=== PATIENT | female | born 1990 | race Caucasian/White ===

== ENCOUNTER → 2017-03-01 | Outpatient (CLI) | payer OTHER ==
[2017-03-01 16:23] LABS: URINE APPEARANCE CLEAR (CLEAR); URINE BILIRUBIN NEG (NEG); URINE COLOR YELLOW; URINE NITRITE NEG (NEG); URINE PH 6.5 (4.5-7.5); URINE SPECIFIC GRAVITY 1.009 (1.000-1.030); UROBILINOGEN NEG (NEG)
[2017-03-01 16:50] LABS: MANUAL MICROSCOPIC REQUIRED? NO; REVIEW REQ? NO
== END | disposition home or self-care (01) ==
LOC: C.LABSPEC 15:58
PROVIDERS: ATTEND Obstetrics & Gynecology
DX: Z34.01 Encounter for supervision of normal first pregnancy, first trimester (principal); Z3A.00 Weeks of gestation of pregnancy not specified

== ENCOUNTER → 2017-03-04 | Outpatient (CLI) | payer OTHER | END | disposition home or self-care (01) | LOC: C.PAPS 09:01 | PROVIDERS: ATTEND Obstetrics & Gynecology | DX: Z34.01 Encounter for supervision of normal first pregnancy, first trimester (principal); R87.610 Atypical squamous cells of undetermined significance on cytologic smear of cervix (ASC-US) ==

== ENCOUNTER → 2017-03-04 | Outpatient (CLI) | payer OTHER ==
[2017-03-04 16:44] LABS: BASO % 0.4 %; BASO ABS # 0.03 K/uL (0-0.2); COMPLETE YES; EOS % 0.8 %; HEMATOCRIT 36.2 % (37-47); IG% 0.4 %; LYMPH ABS # 2.21 K/uL (1.2-3.4); MEAN CELL VOLUME 89.8 fL (80-100); MEAN CORPUSCULAR HEMOGLOBIN 31.8 pg (25-34); MEAN CORPUSCULAR HGB CONC 35.4 g/dl (32-36); MEAN PLATELET VOLUME 9.9 fL (7.4-10.4); MONO % 7.3 %; NEUT % 65.1 %; PLATELET COUNT 267 K/uL (130-400); RED BLOOD COUNT 4.03 M/uL (4.2-5.4); WHITE BLOOD COUNT 8.49 K/uL (4.8-10.8)
[2017-03-09 00:44] LABS: CHLAMYDIA TRACH RNA*** NOT DETECTED (NOT DETECTED); GC (NEIS GONORRHOEAE)RNA** NOT DETECTED (NOT DETECTED)
== END | disposition home or self-care (01) ==
LOC: C.LAB1850 15:55
PROVIDERS: ATTEND Obstetrics & Gynecology
DX: Z34.01 Encounter for supervision of normal first pregnancy, first trimester (principal)

== ENCOUNTER → 2017-04-30 | Outpatient (CLI) | payer OTHER ==
[2017-04-30 21:31] LABS: GTGD 50 Grams
== END | disposition home or self-care (01) ==
LOC: C.LAB1850 15:43
PROVIDERS: ATTEND Obstetrics & Gynecology
DX: Z34.02 Encounter for supervision of normal first pregnancy, second trimester (principal); Z3A.00 Weeks of gestation of pregnancy not specified

== ENCOUNTER → 2017-07-23 | Outpatient (CLI) | payer OTHER ==
[2017-07-23 16:33] LABS: HEMATOCRIT 33.8 % (37-47); HEMOGLOBIN 11.7 g/dL (12.0-16.0)
== END | disposition home or self-care (01) ==
LOC: C.LAB1850 15:43
PROVIDERS: ATTEND Obstetrics & Gynecology
DX: Z34.03 Encounter for supervision of normal first pregnancy, third trimester (principal)

== ENCOUNTER 2017-09-12 18:14 | Inpatient (IN) | payer OTHER ==
[~2017-09-12] VITALS: Ht 162.6 cm; Wt 68.6 kg
[2017-09-12] MEDS ORDERED: LACTATED RINGER'S 1000ML 1,000 ML IV PRN (18:46)
[2017-09-12] MEDS ORDERED: PENICILLIN G POTASSIUM IV 3 MU in DEXTROSE 5% 100ML 100 ML IV PRN (19:00)
[2017-09-12] MEDS: LACTATED RINGER'S 1000ML 1,000 ML IV SCH ×2 (19:27→23:04)
[2017-09-12] MEDS ORDERED: PENICILLIN G POTASSIUM IV 6 MU in DEXTROSE 5% 250ML 250 ML IV SCH (19:30)
[2017-09-12 19:36] LABS: HEMATOCRIT 35.3 % (37-47); HEMOGLOBIN 12.5 g/dL (12.0-16.0); MEAN CORPUSCULAR HEMOGLOBIN 31.2 pg (25-34); MEAN CORPUSCULAR HGB CONC 35.4 g/dl (32-36); MEAN PLATELET VOLUME 9.6 fL (7.4-10.4); PLATELET COUNT 282 K/uL (130-400); RED CELL DISTRIBUTION WIDTH CV 12.3 % (11.5-14.5); RED CELL DISTRIBUTION WIDTH SD 39.7 fL (36.4-46.3); WHITE BLOOD COUNT 9.25 K/uL (4.8-10.8)
[2017-09-12] MEDS ORDERED: MAGNESIUM SULFATE 40GM / WTR 1,000 ML IV ONE (19:59)
[2017-09-12] MEDS ORDERED: BETAMETH SOD PHOS/ACETATE IA 6 MG/ML IM SCH (20:00)
[2017-09-12] MEDS ORDERED: LIDOCAINE HCL 2% JELLY 30 ML TUBE EXT ONE (20:11)
[2017-09-12] MEDS ORDERED: MAGNESIUM SULFATE 4GM / WTR 100ML IV ONE (20:15)
[2017-09-12] MEDS ORDERED: MAGNESIUM SULFATE 40GM / WTR 1,000 ML IV SCH (20:45)
[2017-09-12] MEDS ORDERED: PRENTAB26 PO (21:06)
[2017-09-12 21:18] VITALS: Ht 162.6 cm; Wt 68.6 kg
[2017-09-12] MEDS ORDERED: EpHEDrine SULFATE INJ 50 MG/ML AMP ONE (21:35)
[2017-09-12] MEDS ORDERED: FENTANYL CITRATE INJ 50 MCG/1 ML 2 ML VIAL ONE (21:35)
[2017-09-12] MEDS ORDERED: BUPIVACAINE 0.25% 30 ML VIAL ONE (21:35)
[2017-09-12] MEDS ORDERED: FENTANYL 2MCG/ML ROPIV 1.25MG/ML 100ML BAG EPI ONE (21:36)
[2017-09-12] MEDS ORDERED: NALOXONE HCL INJ 1 MG in SODIUM CHLORIDE 0.9% 1000ML 1,000 ML IV PRN (22:37)
[2017-09-12] MEDS ORDERED: LACTATED RINGER'S 1000ML 500 ML IV PRN (22:37)
[2017-09-12] MEDS ORDERED: EpHEDrine SULFATE INJ 50 MG/ML AMP IV PRN (22:45)
[2017-09-12] MEDS ORDERED: FENTANYL 2MCG/ML ROPIV 1.25MG/ML 100ML BAG EPI PRN (22:45)
[2017-09-12] MEDS ORDERED: NALOXONE HCL INJ 0.4 MG/1 ML VIAL/CARP IV PRN (22:45)
[2017-09-12] MEDS ORDERED: DiphenhydrAMINE HCL 50 MG/ML VIAL IV PRN (22:45)
[2017-09-12] MEDS ORDERED: ONDANSETRON INJ 2 MG/ML 2 ML VIAL IV PRN (22:45)
[2017-09-12] MEDS ORDERED: NALBUPHINE HCL INJ 10 MG/ML AMP IV PRN (22:45)
[2017-09-12] MEDS ORDERED: OXYTOCIN 30 UNITS/500ML NSS IV ONE (23:58)
[2017-09-13] MEDS ORDERED: IBUPROFEN 600 MG TAB PO PRN (00:30)
[2017-09-13] MEDS ORDERED: BENZOCAINE 20% AER SPR 82.5 GM CAN EXT PRN (00:30)
[2017-09-13] MEDS ORDERED: LANOLIN OINT EXT PRN (00:30)
[2017-09-13] MEDS ORDERED: SUPERCREAM 0.870 % 15GM JAR EXT PRN (00:30)
[2017-09-13] MEDS ORDERED: OXYTOCIN 30 UNITS/500ML NSS IV PRN (00:30)
[2017-09-13] MEDS ORDERED: ACETAMINOPHEN 325 MG TAB PO PRN (00:30)
[2017-09-13] MEDS ORDERED: OXYCODONE/ACETAMINOPHEN 5-325 TAB PO PRN (00:30)
[2017-09-13] MEDS ORDERED: HYDROCORTISONE ACETATE 25 MG SUPP PR PRN (00:30)
--- NOTE | 2017-09-13 01:15 | DELIVERY SUMMARY ---
DATE OF OPERATION: 09/13/2017 PREDELIVERY DIAGNOSES: 1. A 27-year-old G1, P0 at 35 weeks and 4 days. 2. Spontaneous labor with spontaneous rupture of membranes. 3. Group B streptococcus unknown. POSTDELIVERY DIAGNOSES: 1. A 27-year-old G1, P0 at 35 weeks and 4 days. 2. Spontaneous labor with spontaneous rupture of membranes. 3. Group B streptococcus unknown. PROCEDURES: Spontaneous vaginal delivery and repair of first-degree perineal laceration. FINDINGS: Viable female with Apgars 8 and 10, weight pending. Please see nursery record and first-degree perineal laceration. COMPLICATIONS: None. ESTIMATED BLOOD LOSS: 300 mL DESCRIPTION OF DELIVERY: The patient presented with worsening contractions throughout the day with spontaneous rupture of membranes at home and contractions worsened. She presented to labor and delivery for evaluation. Attempts were made to transfer patient to a tertiary facility with NICU capabilities, however due to issues with all available transport services being unable to transfer the patient, transfer was delayed. She was given magnesium in anticipation of transport; however, this was stopped when decision was made to keep her at [facility] for delivery. She received an epidural. She then progressed to complete and began to push. She spontaneously vaginally delivered a viable female from the cephalic presentation. The head delivered in the right occiput anterior position. No nuchal cord was noted, followed by the anterior and posterior shoulders and the body. The baby was placed on mother's abdomen. Spontaneous cry was heard and the cord was doubly clamped and cut. A cord segment was retained for cord gases. Cord blood was obtained. The placenta was delivered spontaneously intact with the 3-vessel cord. The uterus became firm, Pitocin was given. The uterus and vagina are swept of all clots and debris. The cervix, vagina, and perineum were inspected and a first-degree peroneal laceration was noted and repaired in standard fashion with 3-0 Vicryl. Excellent hemostasis was observed. The patient and the baby tolerated the delivery well. The stripping and booking machine operator was called at the time of delivery to evaluate the baby due to prematurity. The sponge, instrument, and needle counts were correct at the conclusion of the delivery x2. I attest to the content of the Intraoperative Record and any orders documented therein. Any exception s are noted below.
[2017-09-13 03:00] VITALS: BP 134/71; PULSE 89; TEMP 36.5
--- NOTE | 2017-09-13 06:47 | Progress Note ---
Subjective Sep 13, 2017. Subjective conversation w/ patient, conversation w/ family, physical exam, chart review, lab review Ambulation: ambulating normally Voiding: no voiding problems Passing Gas: Yes Diet Tolerance: Regular Diet Lochia: Moderate Feeding Type: Breast Feeding Review of Systems Constitutional: No fever, No chills, No sweats Respiratory: No cough, No shortness of breath Cardiac: No chest pain, No palpitations Abdomen: No pain, No nausea, No vomiting Female : No dysuria Objective Vital Signs Date Time Temp Pulse Resp B/P (MAP) Pulse Ox O2 Delivery O2 Flow Rate FiO2 09/13/17 03:00 36.5 89 18 134/71 (92) Room Air 09/13/17 03:00 Room Air Physical Exam General Appearance: WELL-APPEARING, WD/WN, NO APPARENT DISTRESS Respiratory/Chest: lungs clear, no respiratory distress Cardiovascular: regular rate, rhythm, no murmur Abdomen: non tender, soft Fundus: Firm, Relation to Umbilicus (1 cm below ) Extremities: non-tender, normal inspection Laboratory Results Last 24 Hours Test 09/12/17 19:05 White Blood Count 9.25 K/uL Red Blood Count 4.01 M/uL Hemoglobin 12.5 g/dL Hematocrit 35.3 % Mean Corpuscular Volume 88.0 fL Mean Corpuscular Hemoglobin 31.2 pg Mean Corpuscular Hemoglobin Concent 35.4 g/dl RDW Standard Deviation 39.7 fL RDW Coefficient of Variation 12.3 % Platelet Count 282 K/uL Mean Platelet Volume 9.6 fL Assessment and Plan Post- Day#: 1 Continue Routine Care: 27, F, , vaginal delivery at 35 wk gestation A+/GBS unknown tx with appropriate abx/RI. Vitals reviewed, WNL. Hgb on admission was 12.5, pending this am. No signs or sx of anemia 1. Recovery from vaginal delivery--ambulate, support BF, control pain, monitor lochia Resident Physician Supervision Note: I interviewed and examined the patient. Discussed with Dr. Lucia and agree with findings and plan as documented in the note. Any exceptions or clarifications are listed here: PPD#1, doing well. Anticipate discharge tomorrow. Documented By: Sisi Jefferson
[2017-09-13 07:15] VITALS: BP 121/79; PULSE 82; TEMP 36.7; O2SAT 98
[2017-09-13] MEDS: DOCUSATE SODIUM 100 MG CAP PO SCH ×2 (08:35→20:23)
--- NOTE | 2017-09-13 09:08 | Anesthesia Procedure Note ---
Anesthesia Epidural Removal Nt Date & Time Sep 13, 2017 at 09:08 Vital Signs Pain Intensity: 2.0 Vital Signs Past 12 Hours Date Time Temp Pulse Resp B/P (MAP) Pulse Ox O2 Delivery O2 Flow Rate FiO2 09/13/17 03:00 36.5 89 18 134/71 (92) Room Air 09/13/17 03:00 Room Air Notes Mental Status: alert / awake / arousable, participated in evaluation Nausea / Vomiting: adequately controlled Pain: adequately controlled Airway Patency, RR, SpO2: stable & adequate BP & HR: stable & adequate Hydration State: stable & adequate Neuraxial Anesthesia: was administered Anesthetic Complications: no major complications apparent, pt satisfied with anesthetic care Epidural: removed without complications, with tip intact
[2017-09-13 12:25] VITALS: BP 112/75; PULSE 80; TEMP 36.4; O2SAT 98
[2017-09-13 15:30] VITALS: BP 116/75; PULSE 75; TEMP 36.9; O2SAT 100
[2017-09-13 20:30] VITALS: BP 119/78; PULSE 70; TEMP 36.5
[2017-09-13 23:30] VITALS: BP 117/72; PULSE 80; TEMP 36.7
--- NOTE | 2017-09-14 06:40 | Progress Note ---
Subjective Sep 14, 2017. Subjective conversation w/ patient, conversation w/ family, physical exam, chart review, lab review Ambulation: ambulating normally Voiding: no voiding problems Passing Gas: Yes Diet Tolerance: Regular Diet Lochia: Small Feeding Type: Breast Feeding Review of Systems Constitutional: No fever, No chills, No sweats Respiratory: No cough, No shortness of breath, No dyspnea on exertion Cardiac: No chest pain, No palpitations Abdomen: No pain, No nausea, No vomiting Female : No dysuria Objective Vital Signs Date Time Temp Pulse Resp B/P (MAP) Pulse Ox O2 Delivery O2 Flow Rate FiO2 09/13/17 23:30 36.7 80 16 117/72 (87) Room Air 09/13/17 23:30 Room Air 09/13/17 20:30 36.5 70 18 119/78 (92) 09/13/17 15:30 36.9 75 18 116/75 (89) 100 Room Air 09/13/17 15:30 Room Air 09/13/17 12:25 36.4 80 16 112/75 (87) 98 Room Air 09/13/17 07:15 36.7 82 16 121/79 (93) 98 Room Air Physical Exam General Appearance: WELL-APPEARING, WD/WN, NO APPARENT DISTRESS Respiratory/Chest: lungs clear, no respiratory distress Cardiovascular: regular rate, rhythm, no murmur Abdomen: non tender, soft Fundus: Firm, Relation to Umbilicus (3 cm below ) Extremities: non-tender, normal inspection Laboratory Results Last 24 Hours Test 09/14/17 04:44 Assessment and Plan Post- Day#: 2 Continue Routine Care: 27, F, , vaginal delivery at 35 wk gestation A+/GBS unknown tx with appropriate abx/RI. Vitals reviewed, WNL. Hgb on admission was 12.5, pending this am. No signs or sx of anemia 1. Recovery from vaginal delivery--ambulate, support BF, control pain, monitor lochia 2. Discussed Dc planning--patient is doing well clinically. Resident Physician Supervision Note: I interviewed and examined the patient. Discussed with Dr. Lucia and agree with findings and plan as documented in the note. Any exceptions or clarifications are listed here: [None] Documented By: Tamara Bolanos
--- NOTE | 2017-09-14 06:50 | Discharge Instructions ---
Discharge Instructions Date of Service Sep 14, 2017. Admission Reason for Admission: Check Labor Discharge Discharge Diagnosis / Problem: vaginal delivery Discharge Goals Goal(s): Routine recovery after delivery Medications Continue Dispensed Medications: supercream, dermaplast, tucks, lansinoh Activity Recommendations Activity Limitations: per Instructions/Follow-up section . Instructions / Follow-Up Instructions / Follow-Up ACTIVITY RECOMMENDATIONS: * Gradual return to full activity over the next 2-3 weeks. * No lifting - nothing heavier than baby over the next 2-3 weeks. * Do not engage in vigorous exercise, sexual activity or sports until cleared by your physician. * Do not drive or operate any motorized equipment until cleared by your physician. * You may shower/bathe daily. MEDICATIONS: For discomfort or pain, you may use Acetaminophen (Tylenol), Ibuprofen (Advil), or Naproxen (Aleve) following the package directions. For constipation you may use Colace following the package directions. BREAST CARE: If you are not breast feeding: * Wear a supportive bra 24 hours a day for one to two weeks. * Avoid stimulating your breasts and nipples as much as possible during the first few weeks after delivery. * When taking a shower, have the warm water hit your back, not breasts. * When your breasts feel full, apply ice packs. Usually three to four times a day helps ease the discomfort. * Take a mild pain medication (Tylenol / Motrin) when you are uncomfortable. If breast feeding: * Use breast milk to lubricate nipples. Lansinoh cream may be used for sore nipples. You do not need to remove cream prior to breast feeding. If using a different brand of cream, check the label for directions regarding removal of cream prior to nursing. * Wear a supportive bra. * If having problems with breasts or breast feeding, call a dairy feed sales consultant or your health care provider. EPISIOTOMY CARE: After delivery, if you have an episiotomy (stitches), the following steps will ease discomfort and aid healing. * For the first 24 hours after delivery, place ice packs next to your episiotomy to help reduce swelling. * After the first 24 hour-period, sitz baths, either portable or in the tub, are suggested. A shower with a shower arm sprayed over the episiotomy may be comforting. * Leighann care should be done after each voiding and bowel movement. Squirt warm water from a plastic bottle over the perineum (region of the body between the anus and urinary opening) and pat dry. * Use Dermoplast to ease discomfort. Shake container. Perry directly over the episiotomy. Place a Tucks on a clean sanitary pad next to your episiotomy. SPECIAL CARE INSTRUCTIONS: When you are discharged from the hospital, it is important for you to follow the instructions listed below: * During the first week at home, you should be able to care for yourself and your baby. In addition, the usual light household activities are encouraged. * Limit your activities to the way you feel. Do not try to clean the house or move furniture. Be sensible. * If you actively engage in sports and have done so up until the time of your delivery, you may resume these activities as soon as you feel able. This may take up to one month or even longer. Use good judgment. * Continue to take your vitamins for at least six weeks after the of your baby. * Your diet need not be limited unless you were on a special diet before your delivery. Breast-feeding mothers need around 2500 calories per day and at least 64-80 ounces of fluid per day (8 to 10 glasses). * You should eat foods from the four major food groups. Crash diets or fad diets are to be avoided. Eating lean meats, fresh fruits and vegetables, low-fat dairy products, high fiber foods and a regular exercise program, will help you get back to your pre- weight without putting your health at risk. * Constipation is sometimes a problem after delivery. Take a mild laxative as needed. If breast feeding, Milk of Magnesia is acceptable to use. You may use a suppository or Fleets enema if no episiotomy. * A daily shower or tub bath is suggested. Be sure to thoroughly and gently dry the perineum. * A bloody vaginal discharge will usually continue until around four weeks post . A small amount of bleeding may continue for as long as six weeks. Vaginal discharge changes from the bright red bleeding after delivery to pink then brownish and finally yellowish-pink before becoming white and disappearing. * Bleeding may increase with activity. Your first period may come in 4-8 weeks. If you are breast feeding, your period may be delayed even longer. * Deforest (sex) can begin whenever both you and your partner feel comfortable and do not have any form of genital infection. It is recommended that you wait at least six weeks for internal and external healing to occur. If you have questions, please talk to your health care practitioner. A condom should be used to prevent infection and . * Foreplay, gentle intercourse and lubrication is very important the first several times to prevent pain. A water-based lubricant such as K-Y jelly or Astroglide may be used. * If you have RH negative blood and your baby is RH positive, you will receive RHOGAM by injection prior to discharge. The nurse will give you a card to keep with you that has the date and place that you received RHOGAM after delivery. * During your care, you had a Rubella screen done to check for the presence of rubella antibodies in your blood. If your test was negative, you will receive a Rubella vaccine prior to discharge. This vaccine may cause a fever, soreness at the injection site and flu-like symptoms. If these symptoms persist, notify your health care practitioner. is not advised for one month after a Rubella vaccine. * Verbalizes understanding of car seat law as reviewed with patient nursing. * Car Seat hand-out given and reviewed with patient by nursing. * Shaken baby information reviewed with patient by nursing. Call you doctor if: * Heavy bleeding (saturating several pads an hour) or passing clots the size of your fist. * A fever >101 degrees F (38.3 degrees C) on two occasions four hours apart and /or chills. * Unusual pain in the pelvic or vaginal areas. * "Baby Blues" lasting longer than two weeks. If you have any questions or concerns, call your health care practitioner at . FOLLOW UP VISIT: * Please call the office at to schedule a 6 week examination. It is important you keep this appointment. It is important for you to make arrangements for either yearly or twice yearly check-ups thereafter. Current Hospital Diet Patient's current hospital diet: Regular OB Diet Discharge Diet Recommended Diet: Regular Diet, Regular OB Diet Pending Studies Studies pending at discharge: no Medical Emergencies . Who to Call and When: Medical Emergencies: If at any time you feel your situation is an emergency, please call 911 immediately. . Non-Emergent Contact Non-Emergency issues call your: Primary Care Provider, Concert Or Lecture Hall Manager . . "Provider Documentation" section prepared by Lance Lucia. .
[2017-09-14 07:13] LABS: HEMATOCRIT 33.7 % (37-47); HEMOGLOBIN 11.3 g/dL (12.0-16.0)
[2017-09-14 07:16] VITALS: BP 109/73; PULSE 68; TEMP 36.9; O2SAT 98
[2017-09-14 07:30] VITALS: O2SAT 98
[2017-09-14] MEDS: DOCUSATE SODIUM 100 MG CAP PO SCH (08:20)
[2017-09-14 08:55] VITALS: O2SAT 97
[2017-09-14 15:55] VITALS: BP 119/76; PULSE 67; TEMP 36.8; O2SAT 98
[2017-09-14 17:30] VITALS: BP_DIAS 76; PULSE 67; TEMP 36.8
[2017-09-14] MEDS ORDERED: BISACODYL 5 MG TABEC PO SCH (20:00)
== END 2017-09-14 17:55 | disposition home or self-care (01) | DRG 775 ==
LOC: C.OPB 18:14 → C.LD 18:14 → C.OPB 18:49 → C.LD 18:49 → C.OBG 09-13 02:50
PROVIDERS: ADMIT Obstetrics & Gynecology; ATTEND Obstetrics & Gynecology
PROC: 0HQ9XZZ Repair Perineum Skin, External Approach (ICD-10-PCS; principal; 2017-09-12)
PROC: 10E0XZZ Delivery of Products of Conception, External Approach (ICD-10-PCS; principal; 2017-09-12)
DX: O70.0 First degree perineal laceration during delivery (principal); Z3A.35 35 weeks gestation of pregnancy; Z37.0 Single live birth

== ENCOUNTER 2019-09-18 21:41 | Inpatient (IN) ==
[2019-09-18] MEDS ORDERED: ePHEDrine sulfate 50 MG/ML AMP ONE (23:39)
[2019-09-18] MEDS ORDERED: fentaNYL citrate 100 MCG/2 ML VIAL ONE (23:40)
[2019-09-18] MEDS ORDERED: BUPIVACAINE 0.25% 30 ML VIAL ONE (23:40)
[2019-09-18] MEDS ORDERED: fentaNYL 2MCG/ML ROPIV 1.25MG/ML 100 ML BAG EPI ONE (23:40)
[2019-09-18] MEDS ORDERED: OXYTOCIN 30 UNITS/500 ML BAG IV PRN (23:46)
[2019-09-18] MEDS: LACTATED RINGER'S 1,000 ML IV PRN (23:48)
[2019-09-19 00:23] LABS: Hematocrit (blood only) 34.9 % (37-47); Hemoglobin 11.9 g/dL (12.0-16.0); Mean Corpuscular Hemoglobin 29.3 pg (25-34); Mean Platelet Volume 10.4 fL (7.4-10.4); Platelet Count 250 K/uL (130-400); RDW Coefficient of Variation 12.1 % (11.5-14.5); RDW Standard Deviation 37.6 fL (36.4-46.3); Red Blood Count 4.06 M/uL (4.2-5.4); White Blood Count 11.48 K/uL (4.8-10.8)
[2019-09-19 00:53] LABS: Mean Corpuscular Hgb Conc 34.1 g/dL (32-36)
[2019-09-19] MEDS: LACTATED RINGER'S 1,000 ML IV PRN (01:00)
[2019-09-19] MEDS ORDERED: NALOXONE HCL 1 MG in SODIUM CHLORIDE 0.9% 1000ML 1,000 ML IV PRN (01:17)
[2019-09-19] MEDS ORDERED: PROMETHAZINE HCL 25 MG in SODIUM CHLORIDE 0.9% 50 ML IV PRN (01:17)
[2019-09-19] MEDS ORDERED: METOCLOPRAMIDE HCL 20 MG in SODIUM CHLORIDE 0.9% 50 ML IV PRN (01:17)
[2019-09-19] MEDS ORDERED: ONDANSETRON INJ 2 MG/ML 2 ML VIAL IV PRN (01:17)
[2019-09-19] MEDS ORDERED: NALBUPHINE HCL INJ 10 MG/ML AMP IV PRN (01:17)
[2019-09-19] MEDS ORDERED: fentaNYL 2MCG/ML ROPIV 1.25MG/ML 100 ML BAG EPI PRN (01:17)
[2019-09-19] MEDS ORDERED: NALOXONE HCL 0.4 MG/1 ML VIAL/CARP IV PRN (01:17)
[2019-09-19] MEDS ORDERED: ePHEDrine sulfate 50 MG/ML AMP IV PRN (01:17)
[2019-09-19] MEDS ORDERED: DiphenhydrAMINE HCL 50 MG/ML VIAL IV PRN (01:17)
--- NOTE | 2019-09-19 01:17 | Anesthesiology Consultation ---
Date of Service September 19, 2019 Assessment & Plan Chart Review Chart Review: Acceptable Risk for Labor Epidural Consults Requested none ASA ASA2 Proposed Anesthesia Anesthesia Type: Labor Epidural Risk / Benefits Reviewed With: PT / POA / Parent / Guardian, Accepts Plan and Informed Consent Obtained History Height/Weight Height: 5 ft 4 in Weight: 74.843 kg Allergies Allergy/AdvReac Type Severity Reaction Status Date / Time No Known Drug Allergies Allergy Unknown . Verified 09/18/19 21:49 Medications Home Medications Medication Instructions Recorded Confirmed Last Taken prenat.vits,james,[id number]-[id number] 1 tab PO DAILY 01/19/19 09/18/19 09/18/19 08:00 NPO Date Last Intake of Fluids: 09/18/19 Time Last Intake of Fluids: 18:00 Date Last Intake of Solids: 09/18/19 Time Last Intake of Solids: 22:00 Exercise / Class Metabolic Activity II 4-5 Yardwork/Stairs/Walk up hill Past Family History Family History (Updated 01/19/19 @ 13:50 by Blank Rodriguez) Mother Anemia Uterine leiomyoma Grandmother (Maternal) Hypertension Grandfather (Paternal) Hypertension Dyslipidemia Grandmother (Paternal) Breast cancer Uterine cancer Ovarian cancer Past Surgical History Surgical History (Updated 01/19/19 @ 13:48 by Blank Rodriguez) H/O oral surgery Past Anesthesia History No Hx of Anesthesia Complications and No Family Hx of Anesthesia Complications History of PONV No Hx of PONV and No Hx of Motion Sickness Social History Smoking Status: Never smoker Hx Alcohol Use: No Hx Substance Use: No Physical Exam Vital Signs Last Vital Signs Temp 36.6 C 09/18/19 21:46 Pulse 90 09/18/19 21:57 Resp 18 09/18/19 21:46 BP 133/82 09/18/19 21:57 ENMT Mouth: no TMJ abnormality Thyromental Distance: > or= 3.5 Finger Breadths Mallampati Class: II Neck normal visual inspection and trachea midline; neck extension not limited Respiratory normal respiratory effort Auscultation: lungs clear to auscultation bilaterally Cardiovascular Rate/Rhythm: regular rate and regular rhythm Heart Sounds: no murmur Musculoskeletal Spine: normal cervical ROM Extremities: full ROM of extremities Neurologic moves all extremities Psychiatric Orientation: alert and oriented x 3 Testing Laboratory Results 09/19/19 00:11
--- NOTE | 2019-09-19 01:28 | History & Physical Report ---
Date of Service September 19, 2019 Assessment & Plan (1) 36 to 37 weeks gestation of : (2) labor: (3) History of delivery, currently : (4) Encounter for supervision of normal in multigravida, antepartum: pt has been admitted. now comfortable with epidural. will recheck in about 30min and begin 2nd stage. fhts categ 1. History of Present Illness Chief Complaint: regular ctx Primary Care Provider: NO PCP 29yo at 36 5/7 wks ega with edc 10/12/19 who presents to L&D with above cc. No rom, no vb. +FM. Contractions are regular. She was evaluated in L&D and changed from 5-6cm and was admitted and shortly thereafter requested epidural. On my arrival she had just received epidural and was comfortable. PNL A pos/RI/GBS neg PNC c/b 1. Prior PTD, on [facility]: sab x 2, x 1 [facility]: nl paps, no stds Current Active Problems Problem Status Onset History of delivery, currently Encounter for supervision of normal in multigravida, antepartum Allergies Allergy/AdvReac Type Severity Reaction Status Date / Time No Known Drug Allergies Allergy Unknown . Verified 09/18/19 21:49 Home Medications Home Medications Medication Instructions Recorded Confirmed Type prenat.vits,james,xdu-eiee-bdqsi 1 tab PO DAILY 01/19/19 09/18/19 History Patient History Medical History (Updated 09/19/19 @ 01:27 by Gabrielle Sidhu MD, FACOG) ASCUS with positive high risk HPV cervical History of irregular menstrual cycles Spontaneous x2 Suprapubic abdominal pain (Inactive) Surgical History (Updated 01/19/19 @ 13:48 by Blank Rodriguez) H/O oral surgery Family History (Updated 01/19/19 @ 13:50 by Blank Rodriguez) Mother Anemia Uterine leiomyoma Grandmother (Maternal) Hypertension Grandfather (Paternal) Hypertension Dyslipidemia Grandmother (Paternal) Breast cancer Uterine cancer Ovarian cancer Social History (Updated 02/16/19 @ 13:40 by Kirsten Lopez) Preferred Language: Gibralt[place] Communication Ability: Effective Chrome Polisher Required: No Beliefs That Will Affect Care: None marital status: marital status details: Lance Cheryl (36) [phone] Current Living Situation: Spouse and Family current occupational status: employed 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 @ [employer] Other Information That Helps Us Care for You: No Feels Safe at Home: Yes Safety Concerns: Feels Safe At This Time Smoking Status: Never smoker Hx Alcohol Use: No Hx Substance Use: No Review of Systems no fever no change in stools no dysuria and no abnormal vaginal bleeding Physical Exam Constitutional: WD/WN, vitals as above Gastrointestinal (Abdomen): Percussion/Palpation: abdomen soft (gravid); abdomen nontender Musculoskeletal: no edema Psychiatric: A+Ox3, euthymic affect Genitourinary: Manual OB Exam: + cervical dilation (rim), + cervical effacement 100%, + station + 1 and + amniotic fluid (AROM) clear OB Exam Monitor Tracing: + external FHT monitor used (130 mod variability), + external uterine monitor used (q3), + category I and + normal FHT variability Results & Data Vital Signs (Past 12 Hours) Vital Signs Temp Pulse Resp BP Pulse Ox 09/19/19 01:19 96 H 108/57 L 09/19/19 01:17 87 124/60 09/19/19 01:15 99 H 119/77 100 09/19/19 01:13 88 117/76 09/19/19 01:11 89 113/65 09/19/19 01:10 88 99 09/19/19 01:06 18 09/19/19 01:05 93 H 99 09/19/19 01:02 18 09/19/19 01:00 111 H 99 09/18/19 21:57 90 133/82 09/18/19 21:47 93 H 139/88 09/18/19 21:46 97.9 F 18 Code Status & VTE Plan VTE Prophylaxis Plan VTE Prophylaxis will be ordered: No Coding Level of Care Code None Diagnoses 36 to 37 weeks gestation of labor O60.00 History of delivery, currently O09.219 Encounter for supervision of normal in multigravida, antepartum Z34.80
[2019-09-19] MEDS ORDERED: OXYTOCIN 30 UNITS/500 ML BAG IV PRN (02:14)
[2019-09-19] MEDS ORDERED: OXYCODONE/ACETAMINOPHEN 5mg/325mg TAB PO PRN (02:14)
[2019-09-19] MEDS ORDERED: ACETAMINOPHEN 325 MG TAB PO PRN (02:14)
[2019-09-19] MEDS ORDERED: OXYTOCIN 20 UNITS in LACTATED RINGER'S 1,000 ML IV SCH (02:15)
--- NOTE | 2019-09-19 02:16 | Delivery Summary ---
Vaginal Delivery Summary Date of Service September 19, 2019 The patient dilated to complete and pushed to deliver a viable male infant Apgars 9 and 10 via over intact perineum. Mouth and nose bulb suctioned at perineum. Shoulders and body delivered with ease. Infant was vigorous and crying at . Cord clamped at 30 seconds of life and infant to maternal abdomen where the cord was then doubly clamped and cut. Placenta delivered spontaneously and intact, three-vessel cord. Hemostasis achieved with dilute pitocin and uterine massage and drainage of the bladder for approximately 200 cc under sterile conditions. Cervix and sulci intact. EBL 300 cc. Mother and baby stable recovery. [facility] [place] Vaginal Delivery Charge Vaginal Delivery Codes: 69045 global code for the antepartum, delivery, and post-
[2019-09-19] MEDS ORDERED: SUPERCREAM 0.870% 15 GM JAR EXT PRN (02:40)
[2019-09-19] MEDS ORDERED: HYDROCORTISONE ACETATE 25 MG SUPP PR PRN (02:40)
[2019-09-19] MEDS ORDERED: BENZOCAINE 20% AER SPR 82.5 GM CAN EXT PRN (02:40)
[2019-09-19] MEDS ORDERED: DIPHTHERIA/TETANUS/PERTUSSIS 0.5 ML SYR/VIAL IM ONE (02:40)
--- NOTE | 2019-09-19 03:08 | Anesthesia Procedure Note ---
Date of Service September 19, 2019 Anesthesia Post Epidural Note Vital Signs Vital Signs: Temp Pulse Resp BP Pulse Ox 37.0 C 77 18 122/69 96 09/19/19 01:18 09/19/19 03:04 09/19/19 01:40 09/19/19 03:04 09/19/19 02:05 Notes Mental Status: alert / awake / arousable and participated in evaluation Nausea / Vomiting: adequately controlled Pain: adequately controlled Airway Patency, RR, SpO2: stable & adequate BP & HR: stable & adequate Hydration State: stable & adequate Neuraxial Anesthesia: was administered and sensory block is resolving Anesthetic Complications: no major complications apparent and Pt Satisfied with anesthetic care Epidural: Removed without complications and With tip intact
[2019-09-19] MEDS: DOCUSATE SODIUM 100 MG CAP PO SCH ×2 (08:17→21:17)
[2019-09-19] MEDS: PRENATAL VITAMIN 1 TAB PO SCH (08:17)
[2019-09-19] MEDS: IBUPROFEN 600 MG TAB PO PRN ×2 (11:37→17:11)
--- NOTE | 2019-09-20 07:14 | Obstetrical Progress Note ---
Date of Service September 20, 2019 Assessment & Plan (1) : PPD#1 doing well. Desires discharge. Instructions reviewed. Followup 6w. Subjective Ambulation: ambulating normally Voiding: no voiding problems Diet Tolerance:: regular diet Lochia:: Moderate Feeding Type:: breast feeding PPD#1 Doing well. Review of Systems All systems reviewed & are unremarkable except as noted in HPI & below Physical Exam Constitutional WD/WN, vitals as above no acute distress Respiratory normal respiratory effort Cardiovascular Rate/Rhythm: regular rate and regular rhythm Gastrointestinal (Abdomen) Inspection/Auscultation: abdomen normal to inspection; abdomen not distended Percussion/Palpation: abdomen soft Genitourinary OB Exam Abdomen: + fundal height Fundus: + firm; not tender Results & Data Vital Signs (Past 12 Hours) Vital Signs Temp Pulse Resp BP 09/19/19 23:35 36.7 C 69 18 109/73 09/19/19 20:55 36.7 C 70 18 110/72
[2019-09-20] MEDS: PRENATAL VITAMIN 1 TAB PO SCH (08:26)
[2019-09-20] MEDS: DOCUSATE SODIUM 100 MG CAP PO SCH ×2 (08:26→20:38)
[2019-09-20] MEDS: IBUPROFEN 600 MG TAB PO PRN (08:28)
[2019-09-21] MEDS: IBUPROFEN 600 MG TAB PO PRN (06:17)
--- NOTE | 2019-09-21 07:11 | Obstetrical Progress Note ---
Date of Service September 21, 2019 Assessment & Plan (1) Status post vaginal delivery: Doing well. Plan d/c today. Instructions reviewed. Day #:: 2 Subjective Ambulation: ambulating normally Voiding: no voiding problems Passing Gas:: Yes Diet Tolerance:: regular diet Lochia:: Small Feeding Type:: breast feeding Physical Exam Constitutional WD/WN, vitals as above Gastrointestinal (Abdomen) soft, nt ff/nt at u Psychiatric A+Ox3, euthymic affect Results & Data Vital Signs (Past 12 Hours) Vital Signs Temp Pulse Resp BP Pulse Ox 09/20/19 23:30 36.7 C 69 18 124/80 09/20/19 19:30 36.6 C 67 18 121/80 99
[2019-09-21] MEDS: PRENATAL VITAMIN 1 TAB PO SCH (08:55)
[2019-09-21] MEDS: DOCUSATE SODIUM 100 MG CAP PO SCH (08:55)
== END 2019-09-21 11:20 | disposition home or self-care (01) | DRG 807 ==
LOC: OPB 21:41 → 4S1 21:42 → 4S2 09-19 05:09